=== PATIENT | male | born 1990 ===

== ENCOUNTER 2021-03-04 18:16 | Outpatient (REF) | payer OTHER, SELFPAY ==
[2021-03-06 11:18] LABS: COVID-19 RT-PCR UVMMC Result Negative (Negative)
== END 2021-03-04 18:17 | disposition home or self-care (01) ==
LOC: LBN 18:16
PROVIDERS: Visit Provider Physician Assistant Medical
DX: J02.9 Acute pharyngitis, unspecified (principal); Z20.822 Contact with and (suspected) exposure to COVID-19
CPT/HCPCS: U0003; 87070